=== PATIENT | male | born 1990 | race Caucasian/White ===

== ENCOUNTER 2024-04-11 09:46 | Emergency (ER) | payer BC, SELFPAY ==
[2024-04-11 09:53] VITALS: BP 170/117
[2024-04-11 10:27] VITALS: BP 153/98
--- NOTE | 2024-04-11 10:43 | ED.GENMED ---
History of Present Illness
General
Chief Complaint: Chest Pain
Time Seen by Provider: 04/11/24 10:23
History of Present Illness
History of Present Illness:
33-year-old male presents to the emergency department for evaluation of paroxysms of nocturnal dyspnea occurring over the past week. Also reports decreased exercise tolerance and bilateral leg swelling. Admits to consuming a pint of rum daily for
the past 4 months due to depression after his relationship ended. Denies SI or HI. Does have occasional pleuritic right-sided chest discomfort associated with the symptoms. No nausea vomiting or diarrhea.
Past History
Past History
ED Past Medical History: Other (Substance abuse)
ED Past Surgical History: Other (Chest surgery 2007 to repair defect)
Social History
Tobacco: Smoker
Alcohol: Occasional
Drug: Marijuana and Narcotics
Personal: Single
Living: with family
Family History
Family History: Negative Early CAD or Sudden
Review of Systems
Review of Systems
Allergies reviewed?: Yes
All Other Systems: ROS reviewed and negative except as documented in HPI and ROS
Phy Exam
Physical Exam
Physical Exam:
GEN: Well appearing, NAD, WDWN
HEENT: Oral mucosa moist, no scleral icterus
Cardiac: Regular rate and rhythm, no murmur
Lung: No respiratory distress, no tachypnea, lungs clear to auscultation bilaterally
MSK: No gross deformity or injuries, trace pretibial edema bilaterally
Skin: Good color, no pallor or jaundice, no rashes
Neuro: AO x3, moves all extremities freely
Psych: Calm, cooperative
Scores
Heart Score for Chest Pain Patients
STEMI patient?: No
History: Slightly or Non-Suspicious
ECG: Normal
Age: </= 45 years
Risk Factors: 1 or 2 Risk Factors
Troponin: </= Normal Limit
Heart Score for Chest Pain Patients: 1
Heart Score Risk: 2.5% MACE over next 6 weeks
Course
Orders/Labs/Results
Orders:
Orders
04/11/24 09:47
Electrocardiogram (*1) Urgent
Reason for Study: Chest Pain
EKG- Treatment ONCE
04/11/24 10:43
CR Chest - 2 Views Urgent
Comment:
Reason For Exam: SOB
04/11/24 10:46
Complete Blood Count/With Diff Urgent
Comprehensive Metabolic Panel Urgent
NT-proBNP Urgent
Troponin I Urgent
04/11/24 12:13
CT Chest PE Study Urgent
Comment:
Reason For Exam: pleuritic R chest pain
Abnormal Lab Results
04/11/24
10:46
MCV 94.1 H fL
(80.0-94.0)
MCH 32.8 H pg
(27.0-31.0)
Lymphocytes % 16.6 L %
(20.5-51.1)
Glucose 118 H mg/dl
(70-99)
AST 215 H U/L
(17-59)
ALT 181 H U/L
(0-50)
04/11/24 10:46
04/11/24 10:46
Vital Signs
Initial and Last Documented VS:
Initial Vital Signs
Temp Pulse Resp BP Pulse Ox
98.1 F 101 18 170/117 98
04/11/24 09:53 04/11/24 09:53 04/11/24 09:53 04/11/24 09:53 04/11/24 09:53
Last Documented Vital Signs
Temp Pulse Resp BP Pulse Ox
98.1 F 97 26 152/105 97
04/11/24 09:53 04/11/24 13:45 04/11/24 13:45 04/11/24 13:42 04/11/24 13:45
MDM/Problems Addressed
MDM/Problems Addressed:
Unclear etiology to the patient's nocturnal dyspnea. Certainly could be related to heavy alcohol use, also psychosomatic is considered. He was seen by Luis oliver and given resources for outpatient alcohol cessation, do not see any indication for
further cardiac workup at this time
*Critical Care Note
Total Time (30-74mins, 75-104mins- exclusive of procedures): Not Applicable
ED Attending Note
-
Portions of this chart may have been created with voice recognition software.� Occasional wrong word or��sound alike� substitutions may have occurred due to the inherent limitations of voice recognition software.
Discharge Plan
Departure
Patient Disposition: Home (Routine Discharge)
Date of Disposition: 04/11/24
Time of Disposition: 14:37
Patient with high blood pressure during this ER visit?: No
Discharge Problem:
Atypical chest pain
Instructions: Chest Pain That Is Not Caused by the Heart (DC), Alcohol and your health
Prescriptions:
No Action
ibuprofen 800 MG tablet
800 mg PO Q6HPRN PRN (Reason: pain, take with food) Qty: 30 0RF
cephalexin 500 MG capsule
500 mg PO TID Qty: 21 0RF
No Current Medications
0
Referrals:
Julius Valdez MD [Family Provider] -
Interventions
Interventions:
*Risk Screen - Suicide Last Done: 04/11/24 09:53
*General Assessment Last Done: 04/11/24 09:53
*Neglect/Abuse Screening Last Done: 04/11/24 09:53
ED- Fall Risk Assessment Last Done: 04/11/24 10:51
*Nursing Disposition Last Done: 04/11/24 14:58
ED- Cardiac Assessment Last Done: 04/11/24 10:51
Discharge Date and Time
Discharge Date/Time: 04/11/24 14:58
Print Language: MACEDONIAN
[2024-04-11 11:00] VITALS: BP 151/99
[2024-04-11 11:10] LABS: % Basophils 0.7 % (0-2); % Eosinophils 1.4 % (0-6); % Immature Granulocytes 0.3 % (0-0.5); % Lymphocytes 16.6 % (20.5-51.1); Absolute Basophils 0.1 10^3/uL (0-0.2); Absolute Eosinophils 0.1 10^3/uL (0-0.7); Absolute Lymphocytes 1.2 10^3/uL (1.2-3.4); Absolute Monocytes 0.5 10^3/uL (0.1-0.6); Absolute Neutrophils 5.2 10^3/uL (1.4-6.5); Hematocrit 46.5 % (39.0-52.0); Hemoglobin 16.2 g/dL (13.0-18.0); Mean Corp Hgb Conc. 34.8 g/dL (33.0-37.0); Mean Corpuscular Hgb 32.8 pg (27.0-31.0); Mean Corpuscular Volume 94.1 fL (80.0-94.0); Mean Platelet Volume 9.4 fL (7.4-10.4); Nucleated Red Blood Cells % 0 % (-); Platelet Count 218 10^3/uL (130-400); Red Blood Cell Count 4.94 10^6/uL (4.70-6.10)
[2024-04-11 11:14] LABS: ALT (SGPT) 181 U/L (0-50); AST (SGOT) 215 U/L (17-59); Alkaline Phosphatase 115 U/L (38-126); Blood Urea Nitrogen 11 mg/dl (9-20); Calcium 9.8 mg/dl (8.4-10.2); Carbon Dioxide 24 mmol/L (22-30); Chloride 100 mmol/L (98-107); Glucose 118 mg/dl (70-99); Potassium 4.4 mmol/L (3.5-5.1); Sodium 137 mmol/L (135-145); Total Bilirubin 1.3 mg/dl (0.2-1.3); Total Protein 7.9 g/dl (6.3-8.2); eGFR > 60.00
[2024-04-11 11:22] LABS: NT-proBNP < 20.0 pg/ml; Troponin I < 0.012 ng/ml
[2024-04-11 12:00] VITALS: BP 141/95
[2024-04-11 13:42] VITALS: BP 152/105
== END 2024-04-11 14:58 | disposition home or self-care (01) ==
LOC: EMR 09:46
PROVIDERS: Physician Assistant; EMERGENCY PHYSICIAN Emergency Medicine; FAMILY PHYSICIAN Student in an Organized Health Care Education/Training Program
DX: R07.89 Other chest pain (principal); F17.200 Nicotine dependence, unspecified, uncomplicated
CPT/HCPCS: 99284; 71046; 71275; 80053; 83880; 84484; 85025; 93005; Q9967

== ENCOUNTER 2024-08-22 23:55 | Observation (INO) | payer BC, SELFPAY ==
[2024-08-22 19:33] VITALS: BP 174/106
[2024-08-22] MEDS: DECADRON 8 MG IV (20:38)
[2024-08-22 20:59] LABS: % Basophils 0.6 % (0-2); % Eosinophils 2.8 % (0-6); % Immature Granulocytes 0.6 % (0-0.5); % Lymphocytes 34.4 % (20.5-51.1); % Monocytes 8.6 % (1.7-9.3); Absolute Eosinophils 0.2 10^3/uL (0-0.7); Absolute Lymphocytes 2.4 10^3/uL (1.2-3.4); Absolute Monocytes 0.6 10^3/uL (0.1-0.6); Absolute Neutrophils 3.6 10^3/uL (1.4-6.5); Hematocrit 41.5 % (39.0-52.0); Hemoglobin 14.4 g/dL (13.0-18.0); Mean Corp Hgb Conc. 34.7 g/dL (33.0-37.0); Mean Corpuscular Volume 92.2 fL (80.0-94.0); Mean Platelet Volume 9.4 fL (7.4-10.4); Nucleated Red Blood Cells % 0 % (-); Platelet Count 194 10^3/uL (130-400); Red Cell Dist. Width 13.3 % (11.5-14.5); White Blood Cell Count 6.8 10^3/uL (4.8-10.8)
[2024-08-22 21:05] LABS: COVID-19 Antigen Negative (Negative)
[2024-08-22 21:14] LABS: D-Dimer < 0.27 ug/mlFEU (0.00-0.50)
[2024-08-22 21:17] LABS: Blood Urea Nitrogen 10 mg/dl (9-20); Calcium 9.9 mg/dl (8.4-10.2); Carbon Dioxide 29 mmol/L (22-30); Chloride 103 mmol/L (98-107); Glucose 107 mg/dl (70-99); Potassium 4.1 mmol/L (3.5-5.1); Sodium 141 mmol/L (135-145); eGFR > 60.00
[2024-08-22] MEDS: DUONEB 3 ML INH (21:40)
--- NOTE | 2024-08-22 21:43 | ED.GENMED ---
History of Present Illness
General
Chief Complaint: Cold/Flu/URI Symptoms
Source: patient
Exam Limitations: none
Time Seen by Provider: 08/22/24 20:25
History of Present Illness
History of Present Illness:
33-year-old male complaining of cough. Initially not blood-tinged but now with blood-tinged cough. Feels like he has fluid in his lungs. No pleuritic pain no high fever no other complaints. No history of same. Patient used to vape. No vaping
for 3 months
Past History
Past History
ED Past Medical History: Other (Substance abuse)
ED Past Surgical History: Other (Chest surgery 2006 to repair defect)
Social History
Tobacco: Smoker
Alcohol: Occasional
Drug: Marijuana and Narcotics
Personal: Single
Living: with family
Family History
Family History: Negative Early CAD or Sudden
Review of Systems
Review of Systems
All Other Systems: Not applicable
Constitutional: Denies fever
Respiratory: Reports cough
Cardiac: Denies chest pain or syncope
Phy Exam
Physical Exam
Physical Exam:
GENERAL: Alert and oriented in no apparent distress
EYE: Orbits normal.
NECK: Supple, no significant adenopathy.
ENT: Pharynx without erythema
CARDIAC: Regular rate and rhythm without any obvious murmurs.
LUNGS: No respiratory distress but mild diffuse expiratory wheezing
ABDOMEN: Soft, without focal tenderness or distention
NEUROLOGICAL: Alert and oriented , grossly non-focal
SKIN: Warm and dry, no rash or lesion, no discoloration, skin intact.
MUSCULOSKELETAL: No edema,no deformity.Good color
PSYCH: Normal and appropriate interaction.
Course
Orders/Labs/Results
Orders:
Orders
08/22/24 20:23
CR Chest - 2 Views Urgent
Comment:
Reason For Exam: cough, SOB
08/22/24 20:30
IV Insert/Care/Rem.- Treatment PRN
Dexamethasone Sod Phosphate [Decadron] 8 mg IV NOW STA
08/22/24 20:38
Basic Metabolic Panel Urgent
COVID-19 Antigen Urgent
Source: Nasal Swab
Complete Blood Count/With Diff Urgent
D-Dimer Urgent
Influenza A+B Rapid Molecular Urgent
HINA Source: Nasal Swab
Specimen Description:
08/22/24 21:26
Ipratropium/Albuterol Sulfate [Duoneb] 3 ml INH R NOW ONE
08/22/24 22:04
Albuterol Sulfate [Ventolin Nebules] 7.5 mg INH R NOW STA
08/22/24 22:54
Admit/Transfer Patient As Directed
Co-Sign Provider:
Level of Care: Observation services
Assign to:: Medical/Surgical
Physician / Group: Rose Marie Mcpherson
Diagnosis: acute bronchitis
PRN Pain Medication Management As Directed
May give lesser potent ordered pain med per pt: Yes
preference::
Protocol:: Medication orders for pain may be administered in a
manner that supports deferring to patient preference
when the pt is:
- Requesting an ordered lesser potent pain medication.
Least to most potent pain medications are defined
as: acetaminophen < NSAID < tramadol < opioids
(morphine, oxycodone, hydromorphone).
- Requesting a lesser dose of the same medication IF
ORDERED.
- Requesting a less intrusive route of administration
if both routes are prescribed by the provider (PO <
IV).
08/22/24 22:55
Code Status As Directed
Resuscitation Status: Full Code
08/23/24 00:00
Acetaminophen [Tylenol] 650 mg PO Q4HPRN PRN
Guaifenesin [Mucinex] 1,200 mg PO Q12
Ipratropium/Albuterol Sulfate [Duoneb] 3 ml INH R Q4HPRN PRN
08/23/24 00:00
Activity As Directed
Activity Level: Ambulate
Intake/ Output As Directed
Frequency: Per unit guidelines
Vital Signs As Directed
Frequency: Per unit guidelines
Weight As Directed
Frequency: Once
Comment: on admission
DX Deep Vein Thrombosis Video Routine
08/23/24 08:00
Dexamethasone Sod Phosphate [Decadron] 8 mg IV Q12H
Ipratropium/Albuterol Sulfate [Duoneb] 3 ml INH R QID
08/23/24 Dinner
Regular
At Your Request: Full Participation
08/23/24 18:00
Enoxaparin Sodium [Lovenox] 40 mg SC QPM
Abnormal Lab Results
08/22/24
20:38
RBC 4.50 L 10^6/uL
(4.70-6.10)
MCH 32.0 H pg
(27.0-31.0)
Immature Gran % 0.6 H %
(0-0.5)
Glucose 107 H mg/dl
(70-99)
08/22/24 20:38
08/22/24 20:38
Vital Signs
Initial and Last Documented VS:
Initial Vital Signs
Temp Pulse Resp BP Pulse Ox
98.1 F 110 20 174/106 97
08/22/24 19:33 08/22/24 19:33 08/22/24 19:33 08/22/24 19:33 08/22/24 19:33
Last Documented Vital Signs
Temp Pulse Resp BP Pulse Ox
98.4 F 122 18 149/93 96
08/23/24 17:27 08/23/24 17:27 08/23/24 17:27 08/23/24 17:27 08/23/24 17:27
MDM/Problems Addressed
Differential Diagnosis Includes:
Patient with mild hemoptysis with sputum but more blood-tinged. Is more secondary to inflammation versus gross hemoptysis. No pleuritic pain. Negative D-dimer negative chest x-ray. Labs are stable. Steroids breathing treatment and reevaluation
*Radiology
Radiology exam reviewed: preliminary read by ED provider (Negative) and radiology read reviewed (Negative)
*Pulse Oximetry
Patient hypoxic: no
*Critical Care Note
Total Time (30-74mins, 75-104mins- exclusive of procedures): Not Applicable
Update Note
Update Note:
2204... Patient still tight. Pulse oxes borderline. Warrants inpatient management. Will give another dose of nebulizer treatments. No indication for bacterial infection or antibiotics at this time.
ED Attending Note
-
Portions of this chart may have been created with voice recognition software.� Occasional wrong word or��sound alike� substitutions may have occurred due to the inherent limitations of voice recognition software.
Discharge Plan
Departure
Patient Disposition: Admit
Date of Disposition: 08/22/24
Time of Disposition: 22:06
Presentation/result/management discussed w/ accepting MD/DO: Hospitalist
Discharge Problem:
Dyspnea/hypoxia, Severe asthmatic bronchitis
Interventions
Interventions:
*Risk Screen - Suicide Last Done: 08/22/24 19:33
*General Assessment Last Done: 08/22/24 19:33
*Neglect/Abuse Screening Last Done: 08/22/24 19:33
*ED- Fall Risk Assessment Last Done: 08/22/24 20:27
*ED COVID-19 Vaccine History Last Done: 08/23/24 00:13
*Nursing Disposition Last Done: 08/22/24 23:57
ED- Pulmonary Assessment Last Done: 08/22/24 21:00
[2024-08-22] MEDS: VENTOLIN NEBULES 7.5 MG INH (22:09)
[2024-08-22 22:12] VITALS: BP 152/97
--- NOTE | 2024-08-22 22:21 | HPS.HSE ---
Family Physician
-
Family Physician: Demarcus Pop
Chief Complaint
-
URI symptoms
History of Present Illness
Patient is a 33-year-old male with past medical history significant for substance abuse who presented to [facility] ED for evaluation of URI symptoms. Patient reports having intermittently productive cough from about a week and has noticed blood-tinged
mucus the past 4 days that has slowly gotten to be more and more blood. He reports having increased work of breathing even at rest and especially when lying down. He reports what could be subjective fevers (temperature swings from sweating to
freezing) but has not monitored his temperature at home. He reports heaving from intense coughing and some mild nausea. Patient states he has had intermittent diarrhea for the past week. Patient denies documented fever, chest pain, vomiting,
constipation or urinary symptoms.
Medical History
Past Medical History
Past Medical History: Reports Other
Additional Past Medical History:
substance abuse
Past Surgical History: Reports Other
Additional Past Surgical History:
Chest surgery in 2001 to correct defect
Social History
Tobacco: Former Smoker (quit cigaretts 7 years ago, has approximately 5 pack year history; vaped for 3 years quitting 3 months ago )
Alcohol: Daily (currently drinking 2 double rum and cokes daily)
Drug: Former User
Personal: Single
Living: With Family
Employment: Employed
Family History
Family History: Other (Father: HTN, hypothyroid, CAD with PCI; Maternal Grandfather: lung cancer; Paternal Grandfather: [place])
Allergies / Home Medications
Allergies reflects when Allergies were last updated in [facility].
Home Medications with original date entered in [facility]
Allergy/Medication List:
Allergies
Allergy/AdvReac Type Severity Reaction Status Date / Time
nickel [Nickel] Allergy Rash Verified 08/22/24 19:37
Home Medications
No Meds [No Current Medications] 04/04/13
Review of Systems
-
History Source: Patient
Constitutional: Reports Night Sweats and Chills
Respiratory: Reports Cough, Hemoptysis, Trouble Breathing and Other (dyspnea at rest )
Abdomen/GI: Reports Nausea and Diarrhea
Musculoskeletal: Reports Edema (trace edema to BLLE )
Physical Exam
Vital Signs
Vital Signs
Temp Pulse Resp BP Pulse Ox
98.1 F 110 20 152/97 90
08/22/24 19:33 08/22/24 19:33 08/22/24 19:33 08/22/24 22:12 08/22/24 22:12
Physical Exam
General: Well Developed, Well Nourished, No Apparent Distress and Conversant
HEENT: Moist mucous membranes, PERRLA, [place] Conjunctivae and Nose Appears Normal
Respiratory: Wheezes and Crackles
Cardiac: S1/S2 and Regular Rhythm
Breast: Deferred by me
GI: Soft, Non Tender, Non Distended and Normal Bowel Sounds
Rectal: Deferred by Provider
Genito-urinary: Deferred by me
Musculoskeletal: Edema, Left Lower Extremity (trace) and Edema, Right Lower Extremity (trace)
Skin: IV/Catheter Site
Neuro: Awake, Alert and AO x 3
Psych: Calm and Intact Judgment/Insight
Laboratory Results
-
08/22/24 20:38
08/22/24 20:38
Data Reviewed
-
Diagnostic Radiology: Report Reviewed by me (CXR: Stable chest wall deformity with loss of definition of right heart border. The lungs appear radiographically clear.)
Lab Data: Labs Reviewed by me
Impression/Plan
-
IMPRESSION/PLAN:
#acute bronchitis
CXR: Stable chest wall deformity with loss of definition of right heart border.
The lungs appear radiographically clear.
- Admit to med/surg
- dexamethasone
- DuoNebs QID & PRN
- Mucinex BID
Code status: full code
DVT prophylaxis: SCDs
--- NOTE | 2024-08-22 22:54 | W.PN.UPDATE ---
Update Note
Progress Note Update
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
33-year-old male past medical history of vaping, marijuana, opiates, alcohol presenting with cough, increased work of breathing, shortness of breath, subjective fevers and slight hemoptysis with cough.� Cough for the past week.
Chest x-ray unremarkable apart from chest wall defect.
Labs unremarkable.
Patient with acute bronchitis.� DuoNebs, dexamethasone, mucinex.�
[2024-08-23] VITALS (7 sets, daily range): BP systolic 123–160; BP diastolic 82–101; BMI 32.6
[2024-08-23] MEDS: MUCINEX 1200 MG PO ×3 (00:39→19:19)
[2024-08-23] MEDS: NSS 1000 IV ×2 (01:30→13:09)
[2024-08-23] MEDS: MELATONIN 5 MG PO (01:30)
--- NOTE | 2024-08-23 01:33 | PTCARENOTE ---
Pt admitted to 4E. Pt AAOx3. Pt has hx alcohol abuse and withdraw. His last drink was last night, 08/22 before coming to the ED. He drank 4 shots of rum and coke. He normally drinks every day. 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 MSAS
score 4. ST in the monitor. Pt is on 2L O2 SaO2 96%. Diminished lung sounds. Dyspneic w/ exertion. Abd round and obese. C/o mild Right lower abd pain. Tender to palpation. Call welsh within reach.
[2024-08-23 01:36] LABS: Urine Albumin Negative (Neg - Trace); Urine Bilirubin Negative (Negative); Urine Character Clear (Clear); Urine Color Yellow; Urine Glucose Negative (Negative); Urine Ketone 2+ (Negative); Urine Leukocyte Negative (Negative); Urine Nitrite Negative (Negative); Urine Occult Blood Negative (Negative); Urine Urobilinogen Negative (Neg - 1+); Urine pH 6.5 (5.0-9.0)
[2024-08-23 01:43] LABS: Alcohol 80 mg/dl; Magnesium 1.5 mg/dl (1.6-2.3)
[2024-08-23 01:57] LABS: Amphetamines Negative (Negative); Barbiturates Negative (Negative); Benzodiazepines Negative (Negative); Buprenorphine Negative (Negative); Cocaine Negative (Negative); Marijuana Positive (Negative); Methadone Negative (Negative); Methamphetamines Negative (Negative); Opiates Negative (Negative); Phencyclidine Negative (Negative); Tricyclic Antidepressants Negative (Negative)
[2024-08-23] MEDS: DUONEB 3 ML INH ×4 (07:17→19:41)
[2024-08-23] MEDS: FOLVITE 1 MG PO (07:38)
[2024-08-23] MEDS: DECADRON 8 MG IV ×2 (07:39→19:21)
[2024-08-23] MEDS: THIAMINE INJECTION 200 MG IV ×2 (07:39→19:20)
[2024-08-23] MEDS: MAGNESIUM SULFATE 50 IV (09:30)
[2024-08-23] MEDS: ATIVAN 1 MG PO ×2 (09:31→19:19)
--- NOTE | 2024-08-23 12:18 | W.PN.HOSP.TC ---
Today's Communication/Plan
-
monitor vitals
see plan
start abx
hydralazine prn
wean o2 as tolerated
cw steroids,nebs
Assessment / Plan
Assessment / Plan
General: Well Developed, Well Nourished, No Apparent Distress and Conversant
HEENT: Moist mucous membranes, PERRLA, [place] Conjunctivae and Nose Appears Normal
Respiratory: Wheezes and Crackles
Cardiac: S1/S2 and Regular Rhythm
GI: Soft, Non Tender, Non Distended and Normal Bowel Sounds
Musculoskeletal: Edema, Left Lower Extremity
Neuro: Awake, Alert and AO x 3
Psych: Calm and Intact Judgment/Insight
Acute hypoxic respiratory insufficiency likely secondary to acute bronchitis
History of former smoking, vape. No official diagnosis of COPD
Continue with DuoNeb, Decadron
Given patient symptoms started couple weeks ago and has not much improved, will start doxycycline
UDS positive marijuana
Advised patient to follow with pulmonary outpatient
Hypomagnesemia
Replete
Daily alcohol use with abuse
cw MSAS
ativan prn
HTN; no prior hx
start hydralazine prn for now
DVTppx
lovenox
Full code
Anticipated Discharge: Within 24 hours
Subjective/Interval History
-
Date of Service: August 23, 2024
denies nausea
Objective Data
-
Vital Signs:
Vital Signs
Temp Pulse Resp BP Pulse Ox
98.5 F 102 18 160/95 96
08/23/24 07:30 08/23/24 11:37 08/23/24 11:37 08/23/24 07:30 08/23/24 11:37
I&O
08/22/24 08/23/24 08/24/24
06:59 06:59 06:59
Intake Total 1520 / 1520
Output Total 1250 / 1250
Balance 270 / 270
[2024-08-23] MEDS: VIBRAMYCIN 100 MG PO ×2 (13:08→19:19)
--- NOTE | 2024-08-23 17:18 | CM ---
Met with patient to obtain information for assessment. Patient stated that he lives with his mother and father in a two story house with one step to enter. Patient stated that he is independent with all of his ADLs, personal care, dressing and
bathing. 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 He has no DME. He has never had VN. He has never been to a SNF.
Patient has a prescription plan and [facility].
Patient's PCP is, Demarcus Pop.
Plan: Case management will continue to follow and assist with discharge planning. Home no needs.
--- NOTE | 2024-08-23 17:30 | PTCARENOTE ---
Received patient at 1300 AAOx3. IVF infusing without difficulty. Pt tolerated diet well. OOB to chair an tolerated well. Offered no complaints. Made patient comfortable. Cont to assess. Report called to RN on . Pt transferred to private
room .
[2024-08-23] MEDS: LOVENOX 40 MG SC (18:24)
[2024-08-24 00:34] VITALS: BP 158/98
[2024-08-24] MEDS: NSS 1000 IV (01:54)
[2024-08-24 03:31] VITALS: BP 135/91
[2024-08-24] MEDS: DUONEB 3 ML INH ×3 (06:12→14:44)
[2024-08-24 07:21] VITALS: BP 143/89
[2024-08-24 08:02] LABS: Hematocrit 41.9 % (39.0-52.0); Hemoglobin 14.4 g/dL (13.0-18.0); Mean Corp Hgb Conc. 34.4 g/dL (33.0-37.0); Mean Corpuscular Volume 93.1 fL (80.0-94.0); Mean Platelet Volume 9.7 fL (7.4-10.4); Platelet Count 203 10^3/uL (130-400); Red Cell Dist. Width 13.5 % (11.5-14.5); White Blood Cell Count 8.1 10^3/uL (4.8-10.8)
[2024-08-24] MEDS: DECADRON 8 MG IV (09:07)
[2024-08-24 09:11] LABS: Blood Urea Nitrogen 11 mg/dl (9-20); Calcium 9.1 mg/dl (8.4-10.2); Carbon Dioxide 26 mmol/L (22-30); Chloride 106 mmol/L (98-107); Estimated Creatinine Clearance > 125 ml/min; Glucose 138 mg/dl (70-99); Sodium 138 mmol/L (135-145); eGFR > 60.00
[2024-08-24] MEDS: FOLVITE 1 MG PO (09:12)
[2024-08-24] MEDS: VIBRAMYCIN 100 MG PO (09:13)
[2024-08-24] MEDS: MUCINEX 1200 MG PO (09:13)
[2024-08-24] MEDS: THIAMINE INJECTION 200 MG IV (09:23)
[2024-08-24 11:06] VITALS: BP 150/92
--- NOTE | 2024-08-24 11:25 | CM ---
CM reviewed chart, patient seen bedside, hopeful for discharge today. OBS form verbally reviewed, provided with copy, placed in chart. Patient reports he will transport self home, denies needs from CM. CM will continue to follow for all discharge
planning needs.
Plan; home no needs.
[2024-08-24] MEDS: LIBRIUM 5 MG PO ×2 (11:29→15:22)
--- NOTE | 2024-08-24 12:28 | W.PN.HOSP.TC ---
Addendum entered and electronically signed by Rod Grimm MD 08/24/24 12:57:
Time of discharge 36 minutes
Original Note:
Today's Communication/Plan
-
Monitor vitals
See plan
Change IV steroids to p.o. prednisone with taper
Doxycycline on discharge
Start Librium
Wean oxygen as tolerated, possible discharge today if no hypoxia with ambulation
Assessment / Plan
Assessment / Plan
General: Well Developed, Well Nourished, No Apparent Distress and Conversant
HEENT: Moist mucous membranes, PERRLA, [place] Conjunctivae and Nose Appears Normal
Respiratory: Wheezes and Crackles
Cardiac: S1/S2 and Regular Rhythm
GI: Soft, Non Tender, Non Distended and Normal Bowel Sounds
Musculoskeletal: Edema, Left Lower Extremity
Neuro: Awake, Alert and AO x 3
Psych: Calm and Intact Judgment/Insight
Acute hypoxic respiratory insufficiency likely secondary to acute bronchitis
History of former smoking, vape. No official diagnosis of COPD
Continue with DuoNeb, change IV steroids to PO. prn inhaler on dc
Given patient symptoms started couple weeks ago and has not much improved, started doxycycline
UDS positive marijuana
Advised patient to follow with pulmonary outpatient
Hypomagnesemia
Repleted
Daily alcohol use with abuse
cw MSAS
ativan prn
start low dose librium
Sinus tachy likley 2/2 withdrawal
no chest pain
HTN; no prior hx
start hydralazine prn for now
DVTppx
lovenox
Full code
Anticipated Discharge: Today
Subjective/Interval History
-
Date of Service: August 24, 2024
denies pain
Objective Data
-
Labs:
Laboratory Results
08/24/24
07:25
WBC 8.1
Hgb 14.4
Hct 41.9
Plt Count 203
Sodium 138
Potassium 4.0
Chloride 106
Carbon Dioxide 26
BUN 11
Creatinine 0.8
Glucose 138 H
Calcium 9.1
Vital Signs:
Vital Signs
Temp Pulse Resp BP Pulse Ox
98.5 F 100 20 150/92 94
08/24/24 11:06 08/24/24 11:06 08/24/24 11:06 08/24/24 11:06 08/24/24 11:06
I&O
08/23/24 08/24/24 08/25/24
06:59 06:59 06:59
Intake Total 1520 / 1520 1440 / 1440
Output Total 1250 / 1250
Balance 270 / 270 1440 / 1440
--- NOTE | 2024-08-24 12:56 | W.DCSUMMARY ---
Discharge Summary
Discharge Data
Date of Admission: 08/22/24
Date of Discharge: 08/24/24
-
Pending Results: No
Hospital Course
33-year-old male with past medical history of alcohol use with abuse came to the hospital with acute hypoxic respiratory insufficiency which was likely thought was secondary to acute bronchitis. Patient did not had any formal diagnosis of COPD
however has history of smoking. Patient was initially started on nebulizer along with IV steroids and doxycycline. Over time patient symptoms continue to improve and his steroids were transitioned to oral on discharge. Doxycycline was continued
for remaining few days to complete the course. On discharge she was instructed to follow-up with pulmonary closely outpatient. For his alcohol use he was started on alcohol withdrawal protocol and required oral Ativan. Prior to discharge he was
started on couple days of Librium. While patient was in the hospital he was able to be weaned off oxygen and was deemed stable to be discharged home with instructions to follow-up with all his physicians outpatient.
Discharge Plan
-
Patient Disposition: Home (Routine Discharge)
Discharge Diagnosis/Procedures: Acute hypoxic respiratory insufficiency likely secondary to acute bronchitis
Daily alcohol use with abuse with mild withrawal
Diet: As tolerated
Activity: As tolerated
Driving Restrictions: As prior to admission
Bathing Restrictions: None
Referrals:
Demarcus Pop MD [Family Provider] - in less than 1 week
Julius Milan MD [Active] -
Prescriptions:
New
folic acid 1 mg Tablet
1 mg PO DAILY Qty: 30 0RF
guaifenesin 600 mg Tablet Extended Release 12hr
1,200 mg PO Q12 Qty: 28 0RF
doxycycline hyclate 100 mg Capsule
100 mg PO Q12 Qty: 10 0RF
chlordiazepoxide HCl 5 mg Capsule
5 mg PO TID Qty: 6 0RF
thiamine mononitrate (vit B1) 100 mg Tablet
100 mg PO BID Qty: 60 0RF
prednisone 10 mg Tablet
See Rx Instructions .ROUTE .COMPLEX Qty: 30 0RF
Rx Instructions:
Take By Mouth:
40 mg daily x3 days, 30 mg daily x3 days,
20 mg daily x3 days, 10 mg daily x3 days.
pantoprazole [Protonix] 40 mg tablet,delayed release (DR/EC)
40 mg PO DAILY Qty: 30 0RF
albuterol sulfate 90 mcg/actuation HFA aerosol inhaler
2 puff inhalation Q6H PRN (Reason: shortness of breath or wheezing) Qty: 8.5 0RF
Discharge Orders:
Discharge Patient (As Directed); Ordered 08/24/24
Ordered By: Rod Grimm
Discharge Date and Time
Discharge Date/Time: 08/24/24 16:48
Print Language: [place]
[2024-08-24 15:58] VITALS: BP 157/91
== END 2024-08-24 16:48 | disposition home or self-care (01) ==
LOC: 4 WEST ACU 23:55
PROVIDERS: Nurse Practitioner Family; ADMITTING PHYSICIAN Hospitalist; ATTENDING PHYSICIAN Internal Medicine; EMERGENCY PHYSICIAN Emergency Medicine; FAMILY PHYSICIAN Family Medicine
DX: R04.2 Hemoptysis (principal); R05.9 Cough, unspecified; R09.02 Hypoxemia; J45.909 Unspecified asthma, uncomplicated; R06.89 Other abnormalities of breathing; R11.0 Nausea; F10.130 Alcohol abuse with withdrawal, uncomplicated; E83.42 Hypomagnesemia; R00.0 Tachycardia, unspecified; F11.10 Opioid abuse, uncomplicated; Q67.8 Other congenital deformities of chest; F17.200 Nicotine dependence, unspecified, uncomplicated; F12.10 Cannabis abuse, uncomplicated; R09.89 Other specified symptoms and signs involving the circulatory and respiratory systems; I10 Essential (primary) hypertension; Z11.52 Encounter for screening for COVID-19
CPT/HCPCS: 71046; 80048; 80306; 81003; 82077; 83735; 85025; 85027; 85379; 87070; 87502; 87811; 93005; 94640; 96374; 99285; 99406; G0378